=== PATIENT | female | born 1955 | race African-American/Black ===

== ENCOUNTER → 2016-11-23 | Day surgery (SDC) | payer OTHER ==
[~2016-11-23] MED LIST: CENTRUM SILVER1 EAC3 PO; COREG3.125 MG PO; HYDROCODON-ACE1 EAC7 PO; LOSARTAN POTASS50 MG PO; MOBIC PO; NORVASC PO
--- NOTE | ~2016-11-23 | OR ---
Unit #: [id number] #: [id number] Patient: BURT DEJESUS [id number] [place], [place] [address] [id number] O MR#: [id number] NAME: BURT DEJESUS. ROOM: Date of Procedure: 11/23/2016 Admission Date: 11/23/2016 Surgeon: Bruce Hodges M.D. : 1955 Attending Physician: Jaun Hodges Primary Care Physician: Gabino Land M.D. [facility]ENTER OPERATIVE NOTE PROCEDURE PERFORMED Cervical epidural steroid injection under x-ray guided needle placement with provider administered conscious sedation. PREOPERATIVE DIAGNOSES 1. Acute cervical radiculitis. 2. Spinal stenosis, cervical spine. 3. Herniated disk, cervical spine, multiple levels. 4. Degenerative joint disease, cervical spine. 5. Degenerative disk disease, cervical spine. 6. Facet arthrosis, multiple levels. 7. Facet arthralgia, multiple levels. INDICATIONS FOR PROCEDURE The patient presents today with a weeks to months long history of right-sided greater than left cervical radicular pain. She is in possession of MRI report, which supports her diagnosis. She was also noted to have complaints compatible with facet arthralgia pain and does have facet arthrosis present on her MRI. After discussing risks and benefits of proceeding today with cervical approach epidural steroid injection as well as return in 9 days for a potential repeat, the patient now agreed this would be the appropriate course of action. We also discussed and found her agreeable to referral to P for potential cervical facet injections with RFA if such is available. DESCRIPTION OF PROCEDURE Following these discussions, the patient was taken to the operating room, where she was prepped and draped in a sterile manner. Standard monitors were applied. She was sedated with 2 mg of IV Versed and cervical epidural space was accessed at the C5-C6 level using loss of resistance technique and x-ray guidance. Needle placement was confirmed with injection of 2 mL of Omnipaque. There was good superior and inferior flow at the C5-C6 level needle placement. Total x-ray time was 2 seconds. Following successful needle placement confirmation, the patient received an injectate containing 2 mL of 0.25% bupivacaine, and 80 mg of methylprednisolone. She tolerated this procedure well. She was discharged home with followup instructions, which include return dates as described above. Dictated by... Bruce Hodges M.D. Unit #: [id number] #: [id number] Patient: BURT DEJESUS Jeanie CEBALLOS/hilda TD: 11/23/2016 16:35 JOB #: [id number] [facility]ENTER OPERATIVE NOTE Page 1 of 1 X Jaun Hodges MD X PROCEDURE OPERATIVE NOTE
== END | disposition home or self-care (01) ==
LOC: CCSC 12:33
DX: M50.10 Cervical disc disorder with radiculopathy, unspecified cervical region (principal); M47.22 Other spondylosis with radiculopathy, cervical region; M48.02 Spinal stenosis, cervical region; Z88.8 Allergy status to other drugs, medicaments and biological substances; F17.210 Nicotine dependence, cigarettes, uncomplicated; Z79.1 Long term (current) use of non-steroidal anti-inflammatories (NSAID); Z79.891 Long term (current) use of opiate analgesic; Z79.899 Other long term (current) drug therapy
CPT/HCPCS: J1040; J2250

== ENCOUNTER → 2016-12-02 | Day surgery (SDC) | payer OTHER ==
--- NOTE | ~2016-12-02 | OR ---
Unit #: [id number] #: [id number] Patient: BURT DEJESUS [id number] [address] [address] [id number] O MR#: [id number] NAME: BURT DEJESUS ROOM: Date of Procedure: 12/02/2016 Admission Date: 12/02/2016 Surgeon: Bruce Hodges M.D. : 1955 Attending Physician: Bruce Hodges M.D. SURGERY CENTER OPERATIVE NOTE PROCEDURE PERFORMED Cervical epidural steroid injection under x-ray guided needle placement with provider administered conscious sedation. PREOPERATIVE DIAGNOSES 1. Acute cervical radiculitis. 2. Cervical stenosis. 3. Degenerative joint disease, cervical spine. 4. Degenerative disk disease, cervical spine. 5. Cervical facet arthralgia. 6. Cervical facet arthrosis. INDICATIONS FOR PROCEDURE The patient presents today status post one previous cervical approach epidural steroid injection for an acute radiculitis, which had failed to respond to conservative therapy. The patient states she got marked relief with the pain extended down her arm completely resolving, although she continues to have pain radiating to her shoulder. She also complains that even though the numbness seems to be less or still has some residual numbness in her 2 fingers of her right hand. She does state that the cervical facet arthralgia pain was unchanged and we would not have expected that to respond to the epidural steroid injections, so we encouraged her to maintain her plan referral to [facility] for potential cervical facet injections. Following these discussions, we discussed a second cervical approach epidural steroid injection, which she now felt would be appropriate course of action. DESCRIPTION OF PROCEDURE She was then taken to the operating room, where she was prepped and draped in a sterile manner. Standard monitors were applied. She was sedated with 2 mg of IV Versed and 1 mL of IV fentanyl for the duration of procedure. The cervical epidural space was accessed at the C4-C5 level using loss of resistance technique and x-ray guidance. Needle placement was confirmed with injection of 2 mL of Omnipaque. There was good superior and inferior flow at the C4-C5 placement needle. Following successful needle placement, the patient received an injectate containing 4 mL normal saline and 80 mg of methylprednisolone. She tolerated this procedure well. She was discharged home with followup instructions, which included prior to sedation, discussion of her blood pressure which was in the 200/100s range today and this discussion for followup include return to this clinic on 03/10/2017 as well as instructions to see her primary care provider this afternoon if possible for her apparently poorly controlled hypertension and/or to call with the numbers that we gave her Unit #: [id number] #: [id number] Patient: BURT DEJESUS to determine what direction her primary care provider want to take her care. Dictated by... Ethan Dahl/hilda TD: 12/02/2016 18:55 JOB #: [id number] CC: Gabino Land M.D. SURGERY CENTER OPERATIVE NOTE Page 1 of 1 X Jaun Hodges MD X PROCEDURE OPERATIVE NOTE
== END | disposition home or self-care (01) ==
LOC: CCSC 09:20
DX: M50.10 Cervical disc disorder with radiculopathy, unspecified cervical region (principal); M48.02 Spinal stenosis, cervical region; M47.22 Other spondylosis with radiculopathy, cervical region; F17.210 Nicotine dependence, cigarettes, uncomplicated; Z88.8 Allergy status to other drugs, medicaments and biological substances; Z79.1 Long term (current) use of non-steroidal anti-inflammatories (NSAID); Z79.899 Other long term (current) drug therapy
CPT/HCPCS: J1040; J2250; J3010